=== PATIENT | female | born 1950 | race Caucasian/White ===

== ENCOUNTER → 2018-06-27 | Emergency (ER) | payer OTHER ==
[~2018-06-27] VITALS: Ht 152.4 cm; Wt 54.4 kg
[~2018-06-27] MED LIST: EVISTA60 MG PO; LOTREL 10-20 MG1 CAP PO; NEXIUM20 MG/PACK PO; PROTONIX40 MG PO; SYNTHROID50 MCG PO; ZANTAC150 M1 PO; ZANTAC150 M3 PO
== END | disposition home or self-care (01) ==
LOC: ER 05:53
DX: S01.01XA Laceration without foreign body of scalp, initial encounter (principal); S00.83XA Contusion of other part of head, initial encounter; S19.89XA Other specified injuries of other specified part of neck, initial encounter; W07.XXXA Fall from chair, initial encounter; Y93.89 Activity, other specified; Y92.018 Other place in single-family (private) house as the place of occurrence of the external cause; Y99.8 Other external cause status

== ENCOUNTER → 2018-07-03 | Emergency (ER) | payer OTHER | END | disposition left against medical advice (07) | LOC: ER 06:41 | DX: Z53.20 Procedure and treatment not carried out because of patient's decision for unspecified reasons (principal) ==

== ENCOUNTER 2022-06-22 09:20 | Emergency (ER) | payer OTHER ==
[~2022-06-22] VITALS: Ht 152.4 cm; Wt 52.6 kg
== END 2022-06-22 14:17 | disposition home or self-care (01) ==
LOC: ER 09:20
DX: S62.613A Displaced fracture of proximal phalanx of left middle finger, initial encounter for closed fracture (principal); S00.83XA Contusion of other part of head, initial encounter; W19.XXXA Unspecified fall, initial encounter; Y93.9 Activity, unspecified; Y92.9 Unspecified place or not applicable